=== PATIENT | female | born 1945 | race Hispanic/Latino ===

== ENCOUNTER 2023-04-07 11:58 | Emergency (ER) | payer MEDICARE ==
[~2023-04-07] VITALS: Ht 157.5 cm; Wt 65.7 kg
[~2023-04-07 11:58] MED LIST: AMLODIPINE BES2.5 MG PO; LISINOPRIL2.5 MG PO; MEDDOSEPAK PO; SINGULAIR10 MG PO; VITAMINS PO
[2023-04-07 12:08] VITALS: BP 155/86
[2023-04-07 12:12] VITALS: BP 148/97
[2023-04-07 12:29] LABS: BASO% 1.3 % (0-3); EOS% 3.8 % (0-8); HEMATOCRIT 42.3 % (37.0-47.0); HEMOGLOBIN 14.5 g/dl (12.0-16.0); IMMATURE GRANULOCYTES 0.5 % (0.0-5.0); LYMPH% 31.7 % (15-41); MEAN CELL VOLUME 93.8 fL CALC (80.0-100.0); MEAN CORPUSCULAR HGB 32.2 pG CALC (26.0-32.0); MEAN CORPUSCULAR HGB CONC 34.3 g/dL CAL (32.0-36.0); MONO% 6.1 % (2-13); NEUT# 4.88 thou/uL (2.00-7.15); NEUT% 56.6 % (42-76); RED BLOOD COUNT 4.51 mill/uL (4.20-5.60); RED CELL DISTRI WIDTH 12.8 % (11.5-15.5)
[2023-04-07 12:31] LABS: ALBUMIN 4.6 g/dL (3.2-5.0); ALKALINE PHOSPHATASE 124 u/l (38-126); ANION GAP 14 (6-22 (CALC)); BILIRUBIN, TOTAL 0.5 mg/dL (0.02-1.3); BUN 19 mg/dL (8-23); BUN/CREATININE RATIO 24 (12-20 (CALC)); CARBON DIOXIDE 24 mmol/l (22-30); CHLORIDE 106 mmol/l (95-108); CREATININE 0.8 mg/dL (0.5-1.0); GFR FOR AFR.AMER. > 60 ML/MIN (>=60 (CALC)); GFR OTHER RACES > 60 ML/MIN (>=60 (CALC)); LIPASE 51 u/l (23-300); POTASSIUM 4.2 mmol/l (3.5-5.1); SGOT/AST 54 u/l (9-36); SODIUM 140 mmol/l (137-146); TOTAL PROTEIN 7.8 g/dL (6.3-8.2)
[2023-04-07 13:00] VITALS: BP 132/70
[2023-04-07 13:27] LABS: URINE BILIRUBIN - DIPSTICK Negative (NEGATIVE); URINE BLOOD DIPSTICK Negative (NEGATIVE); URINE GLUCOSE - DIPSTICK Negative (NEGATIVE); URINE KETONE Negative (NEGATIVE); URINE LEUK ESTERASE Negative (NEGATIVE); URINE NITRITE - DIPSTICK Negative (Negative); URINE PH 5.5 (4.5-8.0); URINE PROTEIN - DIPSTICK Negative (NEG-TRACE); URINE UROBILINOGEN - DIPSTICK 0.2 E.U./dL (0.2)
[2023-04-07 13:29] LABS: URINE COLOR Yellow
[2023-04-07 13:30] VITALS: BP 138/70
[2023-04-07 14:30] VITALS: BP 138/73
[2023-04-07] MEDS ORDERED: DICYCLOMINE HYD10 MG PO (14:43)
[2023-04-07 14:56] VITALS: BP 138/73
== END 2023-04-07 15:05 | disposition home or self-care (01) ==
LOC: ED 11:58
PROVIDERS: Family Medicine
DX: R10.31 Right lower quadrant pain (principal); I10 Essential (primary) hypertension
CPT/HCPCS: Q9967

== ENCOUNTER 2024-02-13 17:43 | Emergency (ER) | payer MEDICARE, MEDICAID ==
[~2024-02-13] VITALS: Ht 157.5 cm; Wt 67.0 kg
[~2024-02-13 17:43] MED LIST changes: +COZAAR50 MG PO; +DICYCLOMINE HYD10 MG PO; +OMEPRAZOLE DR40 MG PO; +ZYRTEC10 MG PO
[2024-02-13 17:49] VITALS: BP 164/85
[2024-02-13] MEDS ORDERED: guaiFENesin-CODEINE 200-20 MG/10 ML UDC PO ONE (17:55)
[2024-02-13 18:00] VITALS: BP 145/88
[2024-02-13 18:30] VITALS: BP 138/79
[2024-02-13 19:00] VITALS: BP 141/69
[2024-02-13 19:30] VITALS: BP 140/78
[2024-02-13] MEDS ORDERED: predniSONE 20 MG/TAB PO ONE (19:35)
[2024-02-13] MEDS ORDERED: AZITHROMYCIN 250 MG/TAB PO ONE ×2 (19:35→20:15)
[2024-02-13] MEDS ORDERED: MEDDOSEPAK PO (19:59)
[2024-02-13] MEDS ORDERED: ZPAK PO (19:59)
[2024-02-13] MEDS ORDERED: BENZONATATE200 MG PO (19:59)
== END 2024-02-13 20:26 | disposition home or self-care (01) ==
LOC: ED 17:43
DX: J20.9 Acute bronchitis, unspecified (principal); I10 Essential (primary) hypertension; J45.909 Unspecified asthma, uncomplicated; Z20.822 Contact with and (suspected) exposure to COVID-19